=== PATIENT | female | born 1950 | race Caucasian/White ===

== ENCOUNTER 2017-10-19 19:05 | Observation (INO) ==
[2017-10-19] MEDS ORDERED: ONDANSETRON 4 MG/2 ML INJECTION IVP ONE (19:43)
[2017-10-19] MEDS ORDERED: NS 1,000 ML IV ONE (19:43)
[2017-10-19] MEDS: SALINE FLUSH 10ml SYRINGE IVF PRN ×2 (19:50→23:56)
--- NOTE | 2017-10-19 20:42 | Emergency Department Report ---
Headache HPI - General Chief Complaint: Headache Stated Complaint: headache & nausea Time Seen by Provider: 10/19/17 19:42 Source: patient Mode of arrival: ambulatory Limitations: no limitations - History of Present Illness HPI Narrative: 67yo woman referred to the ER by her PCM. Pt has had headache for the last 2-5 days (timing unclear). Pain starts in her occiput and wraps around to her her frontalis b/l. Pain was worse this AM; denies vomiting, but has had a fever, congestion, and a cough. Has only taken tylenol for her sx. Pt is very vague historian. Notes from PCM provided. MD Complaint: headache Onset (ago): day(s) Location: frontal, occipital Severity: severe Severity scale (1-10): >10 Quality: throbbing Relieving factors: nothing Exacerbating factors: exertion, movement of head/neck Associated symptoms: fever Other symptoms: cough, other (Congestion) Treatments prior to arrival: acetaminophen - Related Data Home Medications Medication Instructions Recorded Confirmed Prilosec (Omeprazole) 20 mg 20 mg PO BID cap 06/14/17 10/19/17 capsule,delayed release Zyrtec (Cetirizine) 10 mg capsule 10 mg PO BID cap 06/14/17 10/19/17 APAP/Diphenhydramine 500/25 1 tab PO HS PRN 10/19/17 10/19/17 [Tylenol Pm] Albuterol HFA Inhaler [Ventolin 2 puff ORAL INH Q4-6HR PRN 10/19/17 10/19/17 Hfa 90 mcg/actuation] Amitriptyline [Elavil] 20 mg PO HS 10/19/17 10/19/17 Calcium Carbonate [Tums Ultra] 2 tab PO BID 10/19/17 10/19/17 Diclofenac Submicronized [Zorvolex] 18 mg PO TID 10/19/17 10/19/17 Fluticasone Nasal [place] [Flonase] 1 - 2 spray MELI DAILY 10/19/17 10/19/17 Meclizine HCl [Dramamine Less 0.5 - 1 tab PO TID PRN 10/19/17 10/19/17 Drowsy] [place]-3 Fatty Acids/Fish Oil [Fish 3 cap PO BID 10/19/17 10/19/17 Oil 1,000 mg Softgel] Sennosides/Docusate Sodium 1 each PO BID 10/19/17 10/19/17 [Senna-S Tablet] Previous Rx's Medication Instructions Recorded Lopid (gemfibrozil) 600 mg tablet 300 mg PO BID #60 tab 08/02/17 Pravachol (pravastatin) 40 mg 40 mg PO HS #90 tab 08/21/17 tablet famotidine 20 mg tablet 20 mg PO HS #30 tab 08/23/17 Anusol - HC (Hydrocortisone 2.5 %) 1 applicatio MI BID PRN #28.35 g 08/30/17 topical cream with perineal applicator levothyroxine 88 mcg capsule 88 mcg PO DAILY #30 cap 09/05/17 Tenormin (atenolol) 50 mg tablet 25 mg PO BID #30 tab 09/13/17 Allergies Allergy/AdvReac Type Severity Reaction Status Date / Time No Known Allergies Allergy Verified 10/19/17 17:45 Review of Systems All systems: reviewed and negative except as stated Constitutional: Reports: as per HPI, fever. Denies: chills, weakness, weight change, night sweats ENT: Reports: as per HPI, congestion. Denies: ear pain, throat pain, dental pain, hearing loss, epistaxis, dysphagia, other Respiratory: Reports: as per HPI, cough. Denies: dyspnea, wheezes, hemoptysis, stridor Neurological: Reports: as per HPI, headache, vertigo (Chronic for pt). Denies: weakness, numbness, paresthesias, confusion, abnormal gait PFSH Patient Stated Medical History Hypertension Yes Hiatal Hernia Yes Ulcer Yes Hx Urinary Tract Infection Yes Clinic Medical History (Last Reviewed 10/19/17 @ 17:45 by Annalise Marino Radha) Depression (Chronic Medical) SHAYY (stress urinary incontinence, female) (Chronic Medical) PVCs (premature ventricular contractions) (Chronic Medical) IBS (irritable bowel syndrome) (Chronic Medical) Hypercholesteremia (Chronic Medical) Hypothyroidism (Chronic Medical) HTN (hypertension) (Chronic Medical) Osteoarthritis (Chronic Medical) Surgical History: tubal L salpingo-opherectomy. Vaginal Hysterectomy 1984. Thyroidectomy (total) 1974. Hemorrhoidectomy 1993. herniorrhaphy Ing 1953. Tonsillectomy 1956. AP Repair 2000. Reduction mammoplasty B Family History: Family History (Last Reviewed 10/19/17 @ 17:45 by AGAPITO Zavala) Father Prostate cancer Mother Lung cancer - Social History Smoking status: Former smoker Physical Exam - Limitations Limitations: no limitations - General General appearance: alert, in no apparent distress, obese - Normal Exams: Head:: Normocephalic without trauma Eyes:: Pupils are PERRLA w/ EOMI, No scleral icterus, irritation, or foreign bodies noted Neck:: Full range of motion Chest/Respirations:: Clear all rag[place], with good airflow, and symmetry bilaterally Cardiovascular:: Regular rate and rhythm, without murmur or gallop, Pulses 2+ all extremities, capillary refill, <2 seconds all extremities Abdomen:: Bowel sounds positive, soft, non-tender, non-distended, no hepatosplenomegaly, masses or bruits noted Musculoskeletal:: No tenderness, or deformity noted Integumentary:: No rashes, hives, or bruising noted Neurological:: Patient is alert, and oriented Psychiatric:: Patient exhibits, appropriate attention - ENT ENT exam: Present: normal exam, mucous membranes moist, TM's normal bilaterally , normal external ear exam, other (TTP over right maxillary sinus). Absent: normal oropharynx (Erythematous with PND) - Neck Neck exam: Present: normal inspection, full ROM, trachea midline, lymphadenopathy. Absent: tenderness - Neurological Exam Neurological exam: Present: other (Neg Kernig's and Brudzinski's) Course - Consultations Consultation #1: [place] Tele[facility]: Will admit for obs and troponin trending. Time: 22:38 Vital Signs Temperature 99.0 F 10/19/17 19:15 Pulse Rate 113 H 10/19/17 19:15 Respiratory Rate 22 10/19/17 19:15 Blood Pressure 156/81 H 10/19/17 19:15 Pulse Oximetry 93 10/19/17 19:15 Temperature 99.0 F 10/19/17 19:15 Pulse Rate 96 10/19/17 22:03 Respiratory Rate 22 10/19/17 22:03 Blood Pressure 148/76 H 10/19/17 22:03 Pulse Oximetry 96 10/19/17 22:03 Headache - MDM Narrative Medical decision making narrative: 67yo woman with increasing troponin; has h/o HTN, HL, and DM; is post menopausal. 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 Will contact hospitalist for overnight troponin trending. - Differential Diagnosis Differential diagnosis: Likely: migraine, tension headache, headache, meningitis , sinusitis - Medical Records Attestation: I reviewed the patient's medical records. - Lab Data Attestation: I reviewed the patient's lab results. Result diagrams: 10/19/17 20:00 10/19/17 20:01 Lab Results 10/19/17 10/19/17 10/19/17 Range/Units 20:00 20:01 20:54 WBC 5.0 (4.5-11.0) T/MM3 RBC 4.37 (4.00-5.20) M/MM3 Hgb 12.6 (12-16) GM/DL Hct 37.7 (36-46) % MCV 86.3 (80-100) UM3 MCH 28.8 (26-34) UUG MCHC 33.4 (31-37) GM/DL RDW Std Deviation 37.6 (36.9-50.2) FL Plt Count 147 (130-400) T/MM3 MPV 11.0 (9.4-12.4) UM3 Immature Gran % (Auto) 0.2 (0.0-0.5) % Neut % (Auto) 76.6 H (33-66) % Lymph % (Auto) 11.5 L (23-45) % [place] % (Auto) 11.1 H (0-9.0) % Eos % (Auto) 0.2 (0-4) % Baso % (Auto) 0.4 (0-2) % Neut # (Auto) 3.8 (1.8-7.7) T/MM3 Lymph # (Auto) 0.6 L (1-4.8) T/MM3 [place] # (Auto) 0.6 (0-0.8) T/MM3 Eos # (Auto) 0.0 (0-0.5) T/MM3 Baso # (Auto) 0.0 (0-0.2) T/MM3 Abs Immat Gran (auto) 0.01 (0.00-0.03) T/MM3 Turbidity < 20 (0-20) Sodium 137 (134-144) MEQ/L Potassium 4.0 (3.6-5) MEQ/L Chloride 103 (98-107) MEQ/L Carbon Dioxide 22 (22-30) MEQ/L Anion Gap 12 (5-15) MEQ/L BUN 12.0 (7-17) MG/DL Creatinine 0.7 (0.7-1.2) MG/DL GFR Calculation 84 BUN/Creatinine Ratio 17 (6-26) RATIO Glucose 121 H (65-110) MG/DL Calculated Osmolality 265 (261-280) MOSM/KG Calcium 8.9 (8.4-10.2) MG/DL Total Bilirubin 0.50 (0.20-1.30) MG/DL Icterus Index < 2 (0-7) AST 31 (14-36) U/L ALT 37 (9-52) U/L Alkaline Phosphatase 63 (38-126) U/L Troponin I 0.018 (0-0.12) ng/ml Total Protein 7.7 (6.3-8.2) G/DL Albumin 4.6 (3.5-5.0) G/DL Globulin 3.1 (2.4-3.6) G/DL Albumin/Globulin Ratio 1.5 (1.1-2.2) RATIO Lipase 25 (23-300) U/L Specimen Hemolysis < 15 (0-25) Ur Collection Type Urine, clean catch Urine Color Yellow (YELLOW) Urine Clarity Clear Urine pH 7.5 (5.0-8.0) Ur Specific [place] 1.015 (1.015-1.025) Urine Protein Negative (NEGATIVE) Urine Glucose (UA) Negative (NEGATIVE) Urine Ketones Negative (NEGATIVE) Urine Occult Blood Negative (NEGATIVE) Urine Nitrate Negative (NEGATIVE) Urine Bilirubin Negative (NEGATIVE) Urine Urobilinogen 0.2 (NORMAL) EU/DL Ur Leukocyte Esterase Negative (NEGATIVE) Urinalysis Comment Microscopic not ind. 10/19/17 Range/Units 21:52 WBC (4.5-11.0) T/MM3 RBC (4.00-5.20) M/MM3 Hgb (12-16) GM/DL Hct (36-46) % MCV (80-100) UM3 MCH (26-34) UUG MCHC (31-37) GM/DL RDW Std Deviation (36.9-50.2) FL Plt Count (130-400) T/MM3 MPV (9.4-12.4) UM3 Immature Gran % (Auto) (0.0-0.5) % Neut % (Auto) (33-66) % Lymph % (Auto) (23-45) % [place] % (Auto) (0-9.0) % Eos % (Auto) (0-4) % Baso % (Auto) (0-2) % Neut # (Auto) (1.8-7.7) T/MM3 Lymph # (Auto) (1-4.8) T/MM3 [place] # (Auto) (0-0.8) T/MM3 Eos # (Auto) (0-0.5) T/MM3 Baso # (Auto) (0-0.2) T/MM3 Abs Immat Gran (auto) (0.00-0.03) T/MM3 Turbidity (0-20) Sodium (134-144) MEQ/L Potassium (3.6-5) MEQ/L Chloride (98-107) MEQ/L Carbon Dioxide (22-30) MEQ/L Anion Gap (5-15) MEQ/L BUN (7-17) MG/DL Creatinine (0.7-1.2) MG/DL GFR Calculation BUN/Creatinine Ratio (6-26) RATIO Glucose (65-110) MG/DL Calculated Osmolality (261-280) MOSM/KG Calcium (8.4-10.2) MG/DL Total Bilirubin (0.20-1.30) MG/DL Icterus Index (0-7) AST (14-36) U/L ALT (9-52) U/L Alkaline Phosphatase (38-126) U/L Troponin I 0.033 D (0-0.12) ng/ml Total Protein (6.3-8.2) G/DL Albumin (3.5-5.0) G/DL Globulin (2.4-3.6) G/DL Albumin/Globulin Ratio (1.1-2.2) RATIO Lipase (23-300) U/L Specimen Hemolysis < 15 (0-25) Ur Collection Type Urine Color (YELLOW) Urine Clarity Urine pH (5.0-8.0) Ur Specific [place] (1.015-1.025) Urine Protein (NEGATIVE) Urine Glucose (UA) (NEGATIVE) Urine Ketones (NEGATIVE) Urine Occult Blood (NEGATIVE) Urine Nitrate (NEGATIVE) Urine Bilirubin (NEGATIVE) Urine Urobilinogen (NORMAL) EU/DL Ur Leukocyte Esterase (NEGATIVE) Urinalysis Comment - Radiology Data Attestation: I reviewed the patient's radiology results. CXR: Chronic COPD-like changes. No acute CT pathology. - EKG Data EKG #1 EKG attestation: Yes: I reviewed and interpreted this EKG. EKG shows normal: sinus rhythm, axis, ST-T waves Voltage: c/w LVH Heart block present: 1st Degree Disposition Clinical Impression: Viral sinusitis, Elevated troponin Disposition: 02 To OBS [facility] [place] Condition: Stable Prescriptions: No Action APAP/Diphenhydramine 500/25 [Tylenol Pm] 1 tab PO HS PRN PRN Reason: Sleep Calcium Carbonate [Tums Ultra] 2 tab PO BID Sennosides/Docusate Sodium [Senna-S Tablet] 1 each PO BID [place]-3 Fatty Acids/Fish Oil [Fish Oil 1,000 mg Softgel] 3 cap PO BID Meclizine HCl [Dramamine Less Drowsy] 0.5 - 1 tab PO TID PRN PRN Reason: vertigo Fluticasone Nasal [place] [Flonase] 1 - 2 spray MELI DAILY Diclofenac Submicronized [Zorvolex] 18 mg PO TID Albuterol HFA Inhaler [Ventolin Hfa 90 mcg/actuation] 2 puff ORAL INH Q4-6HR PRN PRN Reason: Shortness Of Air/Wheezing Amitriptyline [Elavil] 20 mg PO HS Zyrtec (Cetirizine) 10 mg capsule 10 mg PO BID cap Prilosec (Omeprazole) 20 mg capsule,delayed release 20 mg PO BID cap famotidine 20 mg tablet 20 mg PO HS #30 tab levothyroxine 88 mcg capsule 88 mcg PO DAILY #30 cap Tenormin (atenolol) 50 mg tablet 25 mg PO BID #30 tab Lopid (gemfibrozil) 600 mg tablet 300 mg PO BID #60 tab Pravachol (pravastatin) 40 mg tablet 40 mg PO HS #90 tab Anusol - HC (Hydrocortisone 2.5 %) topical cream with perineal applicator 1 applicatio MI BID PRN #28.35 g PRN Reason: hemorrhoids Referrals: May Winston PA [Physician Welfare Investigator] - Time of Disposition: 22:44 - Seen By: physician
[2017-10-19] MEDS ORDERED: DiphenhydrAMINE 50 MG/ML INJECTION IVP ONE (20:56)
[2017-10-19] MEDS ORDERED: OXYMETAZOLINE 0.05% NASAL SPRAY 15ml EA NOSTRIL ONE (20:56)
[2017-10-19] MEDS ORDERED: PROCHLORPERAZINE 10 MG/2 ML INJECTION IVP ONE (20:57)
[2017-10-19] MEDS ORDERED: METHYLPREDNISOLONE SOD SUCC 125mg/2ml INJECTION IVP ONE (20:58)
[2017-10-19] MEDS ORDERED: ACETAMINOPHEN 325 MG TABLET PO PRN (23:25)
[2017-10-19] MEDS ORDERED: ONDANSETRON 4 MG/2 ML INJECTION IVP PRN (23:25)
[2017-10-19] MEDS ORDERED: HYDROCODONE/APAP 5mg/325mg TABLET PO PRN (23:25)
[2017-10-19] MEDS ORDERED: FALL RISK - PHARMACY CONSULT MC ONE (23:33)
[2017-10-19 23:40] VITALS: BMI 31.9
[2017-10-19] MEDS ORDERED: ALBUTEROL 2.5mg/3ml (0.083%) NEB AEROSOL PRN (23:55)
[2017-10-19] MEDS ORDERED: SENNA + DOCUSATE TABLET PO PRN (23:55)
[2017-10-19] MEDS ORDERED: DiphenhydrAMINE 25 MG CAPSULE PO PRN (23:56)
--- NOTE | 2017-10-20 00:08 | History & Physical Report ---
History of Present Illness Date: 10/20/17 Chief complaint: headache HPI: Please note that the patient was seen via telemedicine with nursing assistance on 10/19/2017 Mrs. Sousa is a very pleasant 67yo woman with h/o essential HTN, dyslpiidemia , palpitations on atenolol, PUD, hypothyroidism, class 1 obesity, but no CAD who presents with 5 days of pressurelike headache. She want to PCP who sent her to ED. Patient recognizes fevers and chills with no definitie drainage but history of sinusitis requiring steroids, antihistamines and occ abx. No sob but occasional wheezing. Specifically when asked about chest pain she recognizes new SSChest pressure at times lasting minutes, not definitively exertional. Troponin elevation trend lead to recc admit to obs telemetry Review of Systems All systems PM: 10-point ROS was reviewed, no additional remarkable complaints except Past Medical History Clinic Medical History (Last Reviewed 10/19/17 @ 17:45 by AGAPITO Zavala) Depression (Chronic Medical) SHAYY (stress urinary incontinence, female) (Chronic Medical) PVCs (premature ventricular contractions) (Chronic Medical) IBS (irritable bowel syndrome) (Chronic Medical) Hypercholesteremia (Chronic Medical) Hypothyroidism (Chronic Medical) HTN (hypertension) (Chronic Medical) Osteoarthritis (Chronic Medical) Surgical History: tubal L salpingo-opherectomy. Vaginal Hysterectomy 1984. Thyroidectomy (total) 1974. Hemorrhoidectomy 1993. herniorrhaphy Ing 1953. Tonsillectomy 1956. AP Repair 2000. Reduction mammoplasty B Family History: Family History (Last Reviewed 10/19/17 @ 17:45 by AGAPITO Zavala) Father Prostate cancer Mother Lung cancer noted early CAD in multiple family members Family History Updates: noted early CAD - Social History Smoking status: Former smoker Medications Home Medications Medication Instructions Recorded Confirmed Type Prilosec (Omeprazole) 20 mg 20 mg PO BID cap 06/14/17 10/19/17 History capsule,delayed release Zyrtec (Cetirizine) 10 mg capsule 10 mg PO BID cap 06/14/17 10/19/17 History APAP/Diphenhydramine 500/25 1 tab PO HS PRN 10/19/17 10/19/17 History [Tylenol Pm] Albuterol HFA Inhaler [Ventolin 2 puff ORAL INH Q4-6HR PRN 10/19/17 10/19/17 History Hfa 90 mcg/actuation] Amitriptyline [Elavil] 20 mg PO HS 10/19/17 10/19/17 History Calcium Carbonate [Tums Ultra] 2 tab PO BID 10/19/17 10/19/17 History Diclofenac Submicronized [Zorvolex] 18 mg PO TID 10/19/17 10/19/17 History Fluticasone Nasal [place] [Flonase] 1 - 2 spray MELI DAILY 10/19/17 10/19/17 History Meclizine HCl [Dramamine Less 0.5 - 1 tab PO TID PRN 10/19/17 10/19/17 History Drowsy] [place]-3 Fatty Acids/Fish Oil [Fish 3 cap PO BID 10/19/17 10/19/17 History Oil 1,000 mg Softgel] Sennosides/Docusate Sodium 1 each PO BID 10/19/17 10/19/17 History [Senna-S Tablet] Allergies Allergy/AdvReac Type Severity Reaction Status Date / Time No Known Allergies Allergy Verified 10/19/17 17:45 Exam Vital Signs: Temperature 97.5 F 10/19/17 23:15 Pulse Rate 97 10/19/17 23:15 Respiratory Rate 18 10/19/17 23:15 Blood Pressure 145/73 H 10/19/17 23:15 Pulse Oximetry 94 10/19/17 23:15 Telemetry Rhythm: Sinus Rhythm, Sinus Tachycardia Height/Weight/BMI: Height 1.63 m Weight 84.4 kg Body Mass Index 31.9 - Constitutional Present: no acute distress - Routine HEENT Exam Head: Present: normocephalic Eye: Present: EOMI - Routine Neck Exam Absent: JVD - Routine Respiratory Exam Present: wheezes. Absent: accessory muscle use, crackles - Routine Cardiovascular Exam Present: RRR, S1, S2 Comments: acc S2 and no edema - Routine Abdominal Exam Present: soft, normoactive bowel sounds - Routine Extremities Exam Absent: cyanosis, clubbing - Routine Back/Spine/Pelvis Exam Back/Spine: Present: full ROM - Routine Neurological Exam Present: alert, oriented X3, CN II-XII intact Results - Labs CBC & Chem 7: 10/19/17 20:00 10/19/17 20:01 Assessment and Plan (1) Elevated troponin Current visit: Yes Status: Acute (2) Hypercholesteremia Current visit: No Status: Chronic (3) Hypothyroidism Current visit: No Status: Chronic (4) HTN (hypertension) Current visit: No Status: Chronic Assessment and Plan: 1. CPressure YAMILEX on tele with lipid profile in AM, ASA now. Likely will need cardiology eval with below risk factors. 2. Essential HTN and h/o palps on atenolol 3. Dyslipidemia on statin--check lipid profile 4. Class 1 obesity 5. Sinusitis, could be bacterial at this point with home fever, etc. Amoxicillin et al 6. Hypothyroidism 7. PUD on PPI 10/20/2017-Dr. Pizarro I have seen and examined the patient. I've reviewed the H&P above and agree. Please see my additions below. Chief complaint is chest pain History of present illness: The patient is a very pleasant 67-year-old female who states that she been having some chest discomfort off and on for a couple of days. Then yesterday she developed a severe headache that was a 10 on a scale of 1-10 associated with nausea and dizziness. She states she has history of intermittent vertigo. She states she has history of sinusitis as well but did not have any rhinorrhea. She was occasionally sneezing and having some dry cough. She states that her headache was unusual yesterday in that it was more severe than she ever had. She also noted photophobia and nausea. She has never had a history of migraine. She felt feverish yesterday but had no chills or sweats. She presented to her primary care doctor's office and EKG was obtained and she was sent to the emergency room by EMS. She was found to have an elevated troponin and EKG showed sinus rhythm with first-degree AV block and questionable septal infarct. The patient states that today her headache is a 2 which is much better. She has had no dizziness today except briefly lasting for a couple of seconds when she lays her head on the pillow. She denies any chest pain today. She denies any shortness of breath. She states her bilateral maxillary sinuses are a little tender. She denies any numbness tingling or weakness. She has some chronic constipation. She has been around her grandkids who have had a cold recently but she didn't feel like she had rhinorrhea or other cold symptoms. Past medical history is reviewed and unchanged from above. She denies history of migraines or sinus surgery. Family history is reviewed and agree from above. Comprehensive review of systems is negative other than the above in history of present illness. Medications are reviewed Physical exam GEN-alert, oriented, no acute distress HEENT-sclera anicteric, pupils are equal, oropharynx is moist. Cheeks are flushed NECK-supple without lymphadenopathy CV-regular rate and rhythm with a systolic murmur CHEST-clear to auscultation bilaterally ABD-soft, nontender with positive bowel sounds -no [place] EXT-no edema NEURO-no focal deficits SKIN-warm and dry. No rashes except her cheeks are flushed CT head was obtained today secondary to severe headache with vertigo yesterday. No acute findings are seen. Chest x-ray showed no acute cardiopulmonary disease. I have viewed the films myself and agree. EKG reveals sinus rhythm, first-degree block, voltage criteria for LVH, possible septal CA-old Laboratory: CBC and comprehensive metabolic profile are essentially normal. Troponin was initially 0.018 and at its highest was 0.034. This morning it was down to 0.029. Triglycerides and cholesterol are normal. UA was normal Impression Intermittent chest pain Elevated troponin Hyperlipidemia Hypertension Severe headache-resolved Chronic intermittent vertigo-markedly better today Possible sinusitis-not seen on CT head however Nausea-resolved History of peptic ulcer disease-on PPI Plan CT head was obtained today secondary to the severity of her symptoms yesterday. Fortunately it did not show any significant abnormalities. No sinusitis was seen on routine CT head Dr. Iverson was consulted regarding the patient's chest pain with elevated troponin and abnormal EKG. He asked for her to be made nothing by mouth and he will see and evaluate her later today. Echocardiogram was on and results are pending. Continue amoxicillin for now. Continue nasal steroids. Headache yesterday was possibly migraine, although this would be unusual since she has not had a migraine in the past. Resuscitation Status: Full Code - Physician Narrative Narrative: Date: 10/20/17 Time: 0005 Hospital Course Summary Disclaimer: The visit summary below is not to be considered part of the above Progress Note.
[2017-10-20] MEDS: AMOXICILLIN 500 MG CAPSULE PO SCH ×4 (00:13→18:39)
[2017-10-20] MEDS ORDERED: ASPIRIN 325 MG TABLET PO ONE (00:13)
[2017-10-20] MEDS ORDERED: LEVOTHYROXINE 88 MCG TABLET PO SCH (07:00)
--- NOTE | 2017-10-20 08:15 | XRay Report ---
INDICATION: N/V; DAMON; Hypoxia PROCEDURE: CHEST 2-VIEWS UPRIGHT (PA & LAT) Encounter: Initial COMPARISON: None FINDINGS: Increased markings in the lung bases could be due to COPD or scarring. No consolidative pneumonia. There is no pleural effusion or pneumothorax. The heart size, mediastinal contours and pulmonary vascularity are within normal limits. There is no significant skeletal abnormality. IMPRESSION: No acute cardiopulmonary disease. .
[2017-10-20] MEDS ORDERED: ATENOLOL 50 MG TABLET PO SCH (09:00)
[2017-10-20] MEDS ORDERED: ATENOLOL 25 MG TABLET PO SCH ×2 (09:00→15:42)
--- NOTE | 2017-10-20 11:31 | Cardiology Consult Note ---
<Chelsea Sparrow - Last Filed: 10/20/17 16:27> History of Present Illness Consult date: 10/20/17 Requesting physician: Ashley Pizarro Consult reason: chest pain Chief complaint: chest pressure History of present illness: Gema is a 67 year old woman with history of essential HTN, HLD, palpitations on atenolol, PUD, hypothyroidism, class 1 obesity, but no known CAD who presented with 5 days of pressure like headache. She went to PCP who sent her to ED. She reports chest pressure which came on while she was playing with her grandchildren and remained all day yesterday, she had an inability to take full breathes and nausea. No diaphoresis or dizziness associated. She was admitted to the hospitalist to rule out LA and Dr. Iverson was consulted , we appreciate the consult. Review of Systems - Constitutional Constitutional: Absent: chills, fever(s) - EENMT Eyes: Absent: change in vision Balance: Absent: vertigo Mouth/Throat: Absent: sore throat - Cardiovascular Cardiovascular: Present: chest pain (Pressure), dyspnea on exertion. Absent: palpitations, syncope Rhythm: Absent: abnormal rhythm Vascular: Absent: pedal edema - Respiratory Respiratory: Absent: cough, wheezing - Gastrointestinal Gastrointestinal: Present: nausea. Absent: abdominal pain, constipation, vomiting - Genitourinary Genitourinary: Absent: dysuria - Integumentary/Breasts Integumentary: Absent: rash - Neurological Neurological: Absent: dizziness - Endocrine Endocrine: Absent: palpitations PFSH Patient Stated Medical History Dental Problems Yes: dentures Hearing Loss Yes: left ear Hypertension Yes Hiatal Hernia Yes Ulcer Yes Other GI Yes: IBS Hx Incontinence Yes Hx Urinary Tract Infection Yes Other Musculoskeletal Yes: vertigo Clinic Medical History (Last Reviewed 10/19/17 @ 17:45 by Annalise Marino Radha) Depression (Chronic Medical) SHAYY (stress urinary incontinence, female) (Chronic Medical) PVCs (premature ventricular contractions) (Chronic Medical) IBS (irritable bowel syndrome) (Chronic Medical) Hypercholesteremia (Chronic Medical) Hypothyroidism (Chronic Medical) HTN (hypertension) (Chronic Medical) Osteoarthritis (Chronic Medical) Surgical History: tubal L salpingo-opherectomy. Vaginal Hysterectomy 1984. Thyroidectomy (total) 1974. Hemorrhoidectomy 1993. herniorrhaphy Ing 1953. Tonsillectomy 1956. AP Repair 2000. Reduction mammoplasty B Family History: Family History (Last Reviewed 10/19/17 @ 17:45 by AGAPITO Zavala) Father Prostate cancer Mother Lung cancer - Social History Smoking status: Former smoker Medications Home Medications Medication Instructions Recorded Confirmed Type Prilosec (Omeprazole) 20 mg 20 mg PO BID cap 06/14/17 10/19/17 History capsule,delayed release Zyrtec (Cetirizine) 10 mg capsule 10 mg PO BID cap 06/14/17 10/19/17 History APAP/Diphenhydramine 500/25 1 tab PO HS PRN 10/19/17 10/19/17 History [Tylenol Pm] Albuterol HFA Inhaler [Ventolin 2 puff ORAL INH Q4-6HR PRN 10/19/17 10/19/17 History Hfa 90 mcg/actuation] Amitriptyline [Elavil] 20 mg PO HS 10/19/17 10/19/17 History Calcium Carbonate [Tums Ultra] 2 tab PO BID 10/19/17 10/19/17 History Diclofenac Submicronized [Zorvolex] 18 mg PO TID 10/19/17 10/19/17 History Fluticasone Nasal [place] [Flonase] 1 - 2 spray MELI DAILY 10/19/17 10/19/17 History Meclizine HCl [Dramamine Less 0.5 - 1 tab PO TID PRN 10/19/17 10/19/17 History Drowsy] [place]-3 Fatty Acids/Fish Oil [Fish 3 cap PO BID 10/19/17 10/19/17 History Oil 1,000 mg Softgel] Sennosides/Docusate Sodium 1 each PO BID 10/19/17 10/19/17 History [Senna-S Tablet] Allergies Allergy/AdvReac Type Severity Reaction Status Date / Time No Known Allergies Allergy Verified 10/19/17 17:45 Exam Vital signs: Temperature 97.0 F 10/20/17 07:39 Pulse Rate 86 10/20/17 08:00 Respiratory Rate 16 10/20/17 07:39 Blood Pressure 124/66 10/20/17 07:39 Pulse Oximetry 91 10/20/17 07:39 - Constitutional no acute distress, well nourished, cooperative - Routine HEENT Exam Head: Present: normocephalic ENT: Present: mucous membranes moist - Routine Neck Exam Absent: JVD, carotid bruit - Routine Chest/Breast/Axilla Exam Chest wall: Absent: tenderness - Routine Respiratory Exam Present: CTA bilaterally. Absent: rales, wheezes - Routine Cardiovascular Exam Present: RRR, no murmur - Routine Abdominal Exam Present: soft, normoactive bowel sounds - Routine Extremities Exam Present: no edema - Routine Skin Exam Present: intact, dry, warm - Routine Neurological Exam Present: alert, oriented X3 - Routine Psychiatric Exam Present: normal affect, normal thought process Results 10/19/17 20:00 10/19/17 20:01 Cardiac Enzymes 10/19/17 10/20/17 Range/Units 23:44 04:04 Troponin I 0.034 0.029 (0-0.12) ng/ml Lipids 10/20/17 Range/Units 04:04 Triglycerides 57 (35-135) MG/DL Cholesterol 149 (132-199) MG/DL HDL Cholesterol 49 (40-60) MG/DL Cholesterol/HDL Ratio 3.0 (0-4.0) RATIO Intake and Output 10/19/17 10/20/17 10/20/17 22:59 06:59 14:59 Intake Total 400 / 400 240 / 240 Balance 400 / 400 240 / 240 Intake: Oral 400 / 400 240 / 240 Other: # Voids 1 1 Weight 186 lb 1.122 oz 190 lb 11.198 oz Patient Weight 10/21/17 06:59 Weight 190 lb 11.198 oz - Imaging and Cardiology Imaging & Cardiology Narrative: Date of Exam: 10/19/17 Ordering Provider: Kelvin De Paz DO Type of Exam(s): XR chest 2V Reason for Exam(s): N/V; DAMON; Hypoxia INDICATION: N/V; DAMON; Hypoxia PROCEDURE: CHEST 2-VIEWS UPRIGHT (PA & LAT) Encounter: Initial COMPARISON: None FINDINGS: Increased markings in the lung bases could be due to COPD or scarring. No consolidative pneumonia. There is no pleural effusion or pneumothorax. The heart size, mediastinal contours and pulmonary vascularity are within normal limits. There is no significant skeletal abnormality. IMPRESSION: No acute cardiopulmonary disease. 10/20/17 12:34 10/20/17 16:35 Date of Exam: 10/20/17 Type of Exam(s): US echo doppler complete DATE OF PROCEDURE October 20, [address] Ashley Pizarro This is a two-dimensional echo with spectral Doppler, color-flow and M-mode. It was obtained in a patient with chest pain. Left atrial dimension is normal. Left ventricular end-diastolic dimension is normal. Left ventricle wall thickness is increased. LV systolic function is normal with ejection fraction of 63%. Right atrium is normal. Right ventricle is normal. Aortic root dimension is normal. Mitral valve is morphologically normal with mild mitral regurgitation. Aortic valve is a trileaflet structure with no stenosis or insufficiency. Tricuspid valve shows mild tricuspid regurgitation with normal estimated pulmonary artery systolic pressure of 30. Pulmonary valve shows no pulmonary insufficiency. There is no pericardial effusion. IMPRESSION 1. Normal LV systolic function with ejection fraction of 63%. 2. Concentric left ventricular hypertrophy. 3. Mild mitral regurgitation. 4. Mild tricuspid regurgitation with normal estimated pulmonary artery systolic pressure of 30. EKG interpretations - Blocks, axis, hypertrophy, ST abn AV and intraventricular conduction: 1 AV block Assessment and Plan - Assessment and Plan (1) Precordial chest pain Status: Acute Chest pressure resolved. - ECHO: EF 63%, LVH, mild MR/TR - EKG without ischemic changes - Troponin X2 negative - Will schedule outpatient stress test (2) Essential (primary) hypertension Status: Chronic Increase Atenolol to 50mg BID (3) Mixed hyperlipidemia Status: Acute PCP manages - Assessment and Plan chest pain: Chest pressure resolved. - ECHO: EF 63%, LVH, mild MR/TR - EKG without ischemic changes - Troponin X2 negative - Will schedule outpatient stress test HTN: Increase Atenolol to 50mg BID Thank you for allowing us to participate in the care of this patient Hospital Course Summary Disclaimer: The visit summary below is not to be considered part of the above Progress Note. <Bartolome Iverson - Last Filed: 10/24/17 12:43> [facility] Patient Stated Medical History Dental Problems Yes: dentures Hearing Loss Yes: left ear Hypertension Yes Hiatal Hernia Yes Ulcer Yes Other GI Yes: IBS Hx Incontinence Yes Hx Urinary Tract Infection Yes Other Musculoskeletal Yes: vertigo [facility] Medical History (Last Reviewed 10/19/17 @ 17:45 by AGAPITO Zavala) Depression (Chronic Medical) SHAYY (stress urinary incontinence, female) (Chronic Medical) PVCs (premature ventricular contractions) (Chronic Medical) IBS (irritable bowel syndrome) (Chronic Medical) Hypercholesteremia (Chronic Medical) Hypothyroidism (Chronic Medical) HTN (hypertension) (Chronic Medical) Osteoarthritis (Chronic Medical) Family History: Family History (Last Reviewed 10/19/17 @ 17:45 by AGAPITO Zavala) Father Prostate cancer Mother Lung cancer Exam Vital signs: Temperature 97.5 F 10/20/17 16:00 Pulse Rate 59 L 10/20/17 16:29 Respiratory Rate 12 10/20/17 16:00 Blood Pressure 125/66 10/20/17 16:00 Pulse Oximetry 94 10/20/17 16:00 Results 10/19/17 20:00 10/19/17 20:01 Assessment and Plan - Attestation Attestation Narrative: 10/24/17 12:43 Recommendation After examining the patient I agree with the above assessment. I am involved in the formulation of the patient's plan of care. - Assessment and Plan (1) Precordial chest pain Status: Acute (2) Essential (primary) hypertension Status: Chronic (3) Mixed hyperlipidemia Status: Acute Hospital Course Summary Disclaimer: The visit summary below is not to be considered part of the above Progress Note.
[2017-10-20] MEDS ORDERED: FLUTICASONE NASAL SPRAY 50mcg EA NOSTRIL SCH (13:15)
--- NOTE | 2017-10-20 13:44 | CT Scan Report ---
Indication: headache and intermittent dizziness PROCEDURE: CT head/brain wo con: Encounter: Initial Comparison: None Technique: Axial CT images through the head were performed without contrast. Iterative Reconstruction dose reducing technique was utilized. FINDINGS: The ventricles are of normal size, shape, and contour for the patient's age. There are scattered areas of low attenuation in the white matter which most likely represent changes from chronic microvascular ischemia. The brainstem, cerebellum, and cerebral hemispheres otherwise have a normal morphology and CT attenuation. There is no evidence of midline displacement. No hemorrhage, signs of acute territorial stroke, mass effect, mass lesions, or edema is evident. 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 The visualized portions of the skull base, midface, and calvarium demonstrate no abnormality. The paranasal sinuses are well aerated and free of significant disease. The tympanic and mastoid cavities appear normal. IMPRESSION: No acute intracranial abnormality or hemorrhage. .
--- NOTE | 2017-10-20 16:27 | Echocardiogram ---
DATE OF PROCEDURE October 20, [address] Ashley Pizarro This is a two-dimensional echo with spectral Doppler, color-flow and M-mode. It was obtained in a patient with chest pain. Left atrial dimension is normal. Left ventricular end-diastolic dimension is normal. Left ventricle wall thickness is increased. LV systolic function is normal with ejection fraction of 63%. Right atrium is normal. Right ventricle is normal. Aortic root dimension is normal. Mitral valve is morphologically normal with mild mitral regurgitation. Aortic valve is a trileaflet structure with no stenosis or insufficiency. Tricuspid valve shows mild tricuspid regurgitation with normal estimated pulmonary artery systolic pressure of 30. Pulmonary valve shows no pulmonary insufficiency. There is no pericardial effusion. IMPRESSION 1. Normal LV systolic function with ejection fraction of 63%. 2. Concentric left ventricular hypertrophy. 3. Mild mitral regurgitation. 4. Mild tricuspid regurgitation with normal estimated pulmonary artery systolic pressure of 30. MTDD
[2017-10-20 16:55] VITALS: BP 125/66; RESP 12; TEMP 97.5; O2SAT 94
--- NOTE | 2017-10-20 17:58 | Discharge Summary ---
Discharge Information Date of admission: 10/19/17 22:49 Anticipated date of discharge: 10/20/17 Attending Physician: Ashley Pizarro MD Primary care physician: Nathaniel Hughes MD Consults: 10/20/17 10:03 Physician Consult [CONS] Routine Consulting Provider: Bartolome Iverson Reason For Exam: elevated troponin, abnl ekg old septal infarct Ordering Provider has Notified Knife Operator: Yes Comment: i will notify - Discharge Diagnosis (1) Elevated troponin Status: Acute (2) Hypercholesteremia Status: Chronic (3) Hypothyroidism Status: Chronic (4) HTN (hypertension) Status: Chronic Chest pain, mild elevated troponin, headache-markedly improved, dizziness- resolved - Laboratory Labs: CBC was essentially normal CMP was essentially normal Triglycerides 57, cholesterol 149, LDL 88, HDL 49, VLDL 11 Troponin initially was 0.018 maximum was 0.034 and on recheck was down to 0.029 UA was essentially negative - Microbiology Blood cultures are pending - Radiology Radiology: PROCEDURE: CHEST 2-VIEWS UPRIGHT (PA & LAT) Encounter: Initial COMPARISON: None FINDINGS: Increased markings in the lung bases could be due to COPD or scarring. No consolidative pneumonia. There is no pleural effusion or pneumothorax. The heart size, mediastinal contours and pulmonary vascularity are within normal limits. There is no significant skeletal abnormality. IMPRESSION: No acute cardiopulmonary disease. PROCEDURE: CT head/brain wo con: Encounter: Initial Comparison: None Technique: Axial CT images through the head were performed without contrast. Iterative Reconstruction dose reducing technique was utilized. FINDINGS: The ventricles are of normal size, shape, and contour for the patient's age. There are scattered areas of low attenuation in the white matter which most likely represent changes from chronic microvascular ischemia. The brainstem, cerebellum, and cerebral hemispheres otherwise have a normal morphology and CT attenuation. There is no evidence of midline displacement. No hemorrhage, signs of acute territorial stroke, mass effect, mass lesions, or edema is evident. 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 The visualized portions of the skull base, midface, and calvarium demonstrate no abnormality. The paranasal sinuses are well aerated and free of significant disease. The tympanic and mastoid cavities appear normal. IMPRESSION: No acute intracranial abnormality or hemorrhage. Date of Exam: 10/20/17 Type of Exam(s): US echo doppler complete DATE OF PROCEDURE October 20, [address] Ashley Pizarro This is a two-dimensional echo with spectral Doppler, color-flow and M-mode. It was obtained in a patient with chest pain. Left atrial dimension is normal. Left ventricular end-diastolic dimension is normal. Left ventricle wall thickness is increased. LV systolic function is normal with ejection fraction of 63%. Right atrium is normal. Right ventricle is normal. Aortic root dimension is normal. Mitral valve is morphologically normal with mild mitral regurgitation. Aortic valve is a trileaflet structure with no stenosis or insufficiency. Tricuspid valve shows mild tricuspid regurgitation with normal estimated pulmonary artery systolic pressure of 30. Pulmonary valve shows no pulmonary insufficiency. There is no pericardial effusion. IMPRESSION 1. Normal LV systolic function with ejection fraction of 63%. 2. Concentric left ventricular hypertrophy. 3. Mild mitral regurgitation. 4. Mild tricuspid regurgitation with normal estimated pulmonary artery systolic pressure of 30. History of Present Illness HPI: Please note that the patient was seen via telemedicine with nursing assistance on 10/19/2017 Mrs. Sousa is a very pleasant 67yo woman with h/o essential HTN, dyslpiidemia , palpitations on atenolol, PUD, hypothyroidism, class 1 obesity, but no CAD who presents with 5 days of pressurelike headache. She want to PCP who sent her to ED. Patient recognizes fevers and chills with no definitie drainage but history of sinusitis requiring steroids, antihistamines and occ abx. No sob but occasional wheezing. Specifically when asked about chest pain she recognizes new SSChest pressure at times lasting minutes, not definitively exertional. Troponin elevation trend lead to recc admit to obs telemetry Objective Vital signs: Temperature 97.5 F 10/20/17 16:00 Pulse Rate 75 10/20/17 16:00 Respiratory Rate 12 10/20/17 16:00 Blood Pressure 125/66 10/20/17 16:00 Pulse Oximetry 94 10/20/17 16:00 Height/Weight/BMI: Height 1.63 m Weight 86.5 kg Body Mass Index 31.9 Hospital Course This is a general summary of the patient's hospital course. For more details refer to the complete medical record. Hospital course: I have seen and examined the patient. I've reviewed the H&P above and agree. Please see my additions below. Chief complaint is chest pain History of present illness: The patient is a very pleasant 67-year-old female who states that she been having some chest discomfort off and on for a couple of days. Then yesterday she developed a severe headache that was a 10 on a scale of 1-10 associated with nausea and dizziness. She states she has history of intermittent vertigo. She states she has history of sinusitis as well but did not have any rhinorrhea. She was occasionally sneezing and having some dry cough. She states that her headache was unusual yesterday in that it was more severe than she ever had. She also noted photophobia and nausea. She has never had a history of migraine. She felt feverish yesterday but had no chills or sweats. She presented to her primary care doctor's office and EKG was obtained and she was sent to the emergency room by EMS. She was found to have an elevated troponin and EKG showed sinus rhythm with first-degree AV block and questionable septal infarct. The patient states that today her headache is a 2 which is much better. She has had no dizziness today except briefly lasting for a couple of seconds when she lays her head on the pillow. She denies any chest pain today. She denies any shortness of breath. She states her bilateral maxillary sinuses are a little tender. She denies any numbness tingling or weakness. She has some chronic constipation. She has been around her grandkids who have had a cold recently but she didn't feel like she had rhinorrhea or other cold symptoms. Past medical history is reviewed and unchanged from above. She denies history of migraines or sinus surgery. Family history is reviewed and agree from above. Comprehensive review of systems is negative other than the above in history of present illness. Medications are reviewed Physical exam GEN-alert, oriented, no acute distress HEENT-sclera anicteric, pupils are equal, oropharynx is moist. Cheeks are flushed NECK-supple without lymphadenopathy CV-regular rate and rhythm with a systolic murmur CHEST-clear to auscultation bilaterally ABD-soft, nontender with positive bowel sounds -no Vaughan EXT-no edema NEURO-no focal deficits SKIN-warm and dry. No rashes except her cheeks are flushed CT head was obtained today secondary to severe headache with vertigo yesterday. No acute findings are seen. Chest x-ray showed no acute cardiopulmonary disease. I have viewed the films myself and agree. EKG reveals sinus rhythm, first-degree block, voltage criteria for LVH, possible septal [place]-old Laboratory: CBC and comprehensive metabolic profile are essentially normal. Troponin was initially 0.018 and at its highest was 0.034. This morning it was down to 0.029. Triglycerides and cholesterol are normal. UA was normal Impression Intermittent chest pain Elevated troponin Hyperlipidemia Hypertension Severe headache-resolved Chronic intermittent vertigo-markedly better today Possible sinusitis-not seen on CT head however Nausea-resolved History of peptic ulcer disease-on PPI Plan CT head was obtained today secondary to the severity of her symptoms yesterday. Fortunately it did not show any significant abnormalities. No sinusitis was seen on routine CT head Dr. Iverson was consulted regarding the patient's chest pain with elevated troponin and abnormal EKG. He asked for her to be made nothing by mouth and he will see and evaluate her later today. Echocardiogram was on and results are pending. Continue amoxicillin for now. Continue nasal steroids. Headache yesterday was possibly migraine, although this would be unusual since she has not had a migraine in the past. 10/20/2017-6 PM-Dr. Pizarro The patient is feeling well this evening. Dr. Iverson did see and evaluate the patient and reviewed the echocardiogram. He is recommending increasing atenolol to 50 mg by mouth twice a day. He would also recommend an outpatient stress test. Overall, the patient is feeling much better. Headache is just mild and a 1 -2 on a scale of 1-10. She feels stable for dismissal to home. Headache has markedly improved. Vertigo has resolved. CT head showed no significant abnormalities. The patient will be dismissed to home on aspirin 81 mg by mouth daily. Increase atenolol to 50 mg by mouth twice a day. Amoxicillin 500 mg 3 times a day for 7 days for sinusitis symptoms. She can follow up with Dr. Hughes next week. She is to follow-up for an outpatient stress test with Dr. Iverson. His office will call her to set this up. If she has recurrence of chest pain she should call 911. If she has recurrence of severe headache with vertigo, she should call 911. Discharge Plan - Discharge Disposition Discharge Date: 10/20/17 Disposition: 01 Discharged Home, Self-Care *Condition: Stable Reason For Visit (Visit label in EMR): elevated troponin, chest pain and headache - Discharge Medications *Discharge Medications: New Acetaminophen [Tylenol] 325 - 650 mg PO Q5H PRN tab PRN Reason: Discomfort Amoxicillin 500 mg PO Q8HR #21 cap Aspirin [Adult Low Dose Aspirin EC] 81 mg PO DAILY #100 tablet. Atenolol [Tenormin] 50 mg PO BID #60 tab Continue APAP/Diphenhydramine 500/25 [Tylenol Pm] 1 tab PO HS PRN PRN Reason: Sleep Calcium Carbonate [Tums Ultra] 2 tab PO BID Sennosides/Docusate Sodium [Senna-S Tablet] 1 each PO BID [place]-3 Fatty Acids/Fish Oil [Fish Oil 1,000 mg Softgel] 3 cap PO BID Meclizine HCl [Dramamine Less Drowsy] 0.5 - 1 tab PO TID PRN PRN Reason: vertigo Fluticasone Nasal [place] [Flonase] 1 - 2 spray MELI DAILY Diclofenac Submicronized [Zorvolex] 18 mg PO TID Albuterol HFA Inhaler [Ventolin Hfa 90 mcg/actuation] 2 puff ORAL INH Q4-6HR PRN PRN Reason: Shortness Of Air/Wheezing Amitriptyline [Elavil] 20 mg PO HS Zyrtec (Cetirizine) 10 mg capsule 10 mg PO BID cap Prilosec (Omeprazole) 20 mg capsule,delayed release 20 mg PO BID cap famotidine 20 mg tablet 20 mg PO HS #30 tab levothyroxine 88 mcg capsule 88 mcg PO DAILY #30 cap Lopid (gemfibrozil) 600 mg tablet 300 mg PO BID #60 tab Pravachol (pravastatin) 40 mg tablet 40 mg PO HS #90 tab Anusol - HC (Hydrocortisone 2.5 %) topical cream with perineal applicator 1 applicatio [place] BID PRN #28.35 g PRN Reason: hemorrhoids Discontinued Tenormin (atenolol) 50 mg tablet 25 mg PO BID #30 tab - Discharge Packet/Instructions *Diet: Cardiac diet *Activity: Light activity as tolerated *Pain Management/Treatment: Tylenol as needed *Wound Care: Not applicable Additional Instructions: Get up slowly from sitting or lying position. If you' re feeling lightheaded or fatigued, check your blood pressure and pulse and notify your physician. *Expected Signs/Symptoms: Mild fatigue *Notify Physician if: Notify your doctor if you have fevers, mild lightheadedness, worsening fatigue, or worsening headaches. Call 911 if you have recurrence of chest pain or severe headache associated with dizziness. *During Business Hours Contact: Call Dr. Hughes's office *After Business Hours Contact: Call [phone] Hughes or Dr[address] Iverson *Pending Lab/Results: Follow up w/Provider - Referrals/Follow Up *Referrals/Follow Up: Nathaniel Hughes MD [Family Provider] - 1 Week Bartolome Iverson MD [Physician] - (His office will call you to set up a stress test for outpatient.) - Patient Handouts Physician Narrative - Narrative Attestation Narrative: Date: 10/20/17 Time: [id number]
[2017-10-20 20:30] VITALS: PULSE 59
[2017-10-20] MEDS ORDERED: FAMOTIDINE 20 MG TABLET PO SCH (21:00)
[2017-10-20] MEDS ORDERED: AMITRIPTYLINE 10 MG TABLET PO SCH (21:00)
[2017-10-20] MEDS ORDERED: PRAVASTATIN 40 MG TABLET PO SCH (21:00)
== END 2017-10-20 18:40 | disposition home or self-care (01) ==
LOC: ED 19:05 → MED 19:05 → SUATTDRO 22:49 → MED 23:10
PROVIDERS: ADMIT Hospitalist; ATTEND Internal Medicine